=== PATIENT | male | born 1975 | race Caucasian/White ===

== ENCOUNTER 2019-02-19 14:41 | Emergency (ER) | payer BC, SELFPAY ==
[2019-02-19 14:42] VITALS: BP 132/72; PULSE 84; RESP 16; TEMP 37.4; O2SAT 96; BMI 33.2
[2019-02-19] MEDS: 0.9% Normal Saline 1,000 ML 1000 ML IV (16:33)
--- NOTE | 2019-02-19 16:45 | ED.DCSUM_ITS ---
History of Present Illness Chief Complaint: Nausea/Vomiting/Diarrhea Narrative: 43-year-old male presents with concern for heat exhaustion. He was working in the extreme heat for most of the day Tuesday and Tuesday. He does not feel dehydrated enough. He subsequently felt headache yesterday and fatigue. He was worse feeling this morning. He denies abdominal pain, back pain, or fever. No rash. Denies any recent sick contacts or respiratory symptoms. Current severity is moderate. No relieving or exacerbating factors. Past Medical History - Allergies and Home Meds Allergies/Adverse Reactions: Allergies No Known Allergies Allergy (Verified 02/19/19 14:43) Primary Care Physician: Danis Corona MD [Primary Care Provider] - Prior records reviewed: Yes Smoking Status: Never smoker Review of Systems All systems negative except as indicated General: Reports: Malaise. Denies: Chills, Fever, Sweats Eyes: Denies: Visual changes - bilaterally, Diplopia ENT: Denies: Rhinorrhea, Sore throat Cardiovascular: Denies: Chest pain, Palpitations Respiratory: Denies: Dyspnea, Cough, Dyspnea on exertion Gastrointestinal: Reports: Nausea, Vomiting. Denies: Abdominal pain, Diarrhea, Melena, Hematochezia Genitourinary: Denies: Dysuria, Hematuria, Frequency Musculoskeletal: Denies: Back pain, Extremity Pain Skin: Denies: Rash, Wounds Neurological: Reports: Weakness. Denies: Headache, Numbness Physical Exam Vital Signs/Narrative: Vital Signs Temp Pulse Resp BP Pulse Ox 02/19/19 14:42 99.4 F H 84 16 132/72 H 96 General: Well nourished, Well developed, No Acute Distress Head: Normocephalic, Atraumatic Eyes: Perrl, EOMI ENT: Moist mucous membranes, No rhinorrhea Neck: Supple, Nontender Cardiovascular: Regular rate, Regular rhythm, No murmurs Respiratory: No distress, CTA bilaterally, Chest nontender Abdomen: Soft, Nontender, Nondistended, Normal bowel sounds Back: Nontender, Normal Inspection Extremities: Nontender, No edema Skin: Normal color, No rash Neurological: Alert, Oriented x3, Cranial nerves II-XII grossly intact, Normal Strength, Normal Sensation Psychological: Normal affect, Normal Mood Diagnostic/Tx/Re-eval - Medical Decision Making I ordered IV fluids and Zofran. BMP and CK are pending. Care will be turned ov er to the oncoming physician to check results and reevaluate. Labs resulted during my shift. Unremarkable. Creatinine normal. CPK normal. He looks well. He is tolerating p.o. Feels much better after IV fluids. No evidence of rhabdomyolysis. No evidence of serious bacterial infection. I feel he can safely be discharged home but was instructed to return here if worse. ED Disposition - Plan for ED Patient: Disposition: Home or Assisted Living Diagnosis: Dehydration after exertion Instructions: VOMITING AND DIARRHEA, Nonspecific (Adult) Prescriptions: proMETHazine tablet [Phenergan] 25 mg PO Q6H PRN PRN #10 tablet PRN Reason: Nausea Referrals: Danis Corona MD [Primary Care Provider] -
[2019-02-19 16:58] LABS: Anion Gap 3 (5-15); BUN 19 mg/dL (7-18); BUN/Creat Ratio 16.7 RATIO (10-20); CPK Total, Creatine Kinase 159 U/L (39-308); Calcium,Total 8.8 mg/dL (8.5-10.1); Chloride 105 mmol/L (98-107); Creatinine, Serum 1.14 mg/dL (0.70-1.30); EST Glomerular Filtration Rate 74 mL/min (>60); Est Glom Filt Rate - Afr Amer 89 mL/min (>60); Estimated Creatinine Clearance 90.76 ml/min; Glucose 90 mg/dL (74-106); Potassium 3.8 mmol/L (3.5-5.1); Sodium Level 138 mmol/L (136-145)
[2019-02-19 17:23] VITALS: PULSE 78; RESP 17; O2SAT 97
== END 2019-02-19 17:27 | disposition home or self-care (01) ==
PROVIDERS: Emergency Provider Emergency Medicine; Family Provider Family Medicine; PCP Family Medicine
DX: E86.0 Dehydration (principal); R11.2 Nausea with vomiting, unspecified
CPT/HCPCS: 80048; 82550; 96360; 99283; J7030; A4216